=== PATIENT | male | born 1985 | race Caucasian/White ===

== ENCOUNTER 2019-05-02 18:32 | Emergency (ER) | payer OTHER, SELFPAY ==
[2019-05-02 18:42] VITALS: BP 160/83; PULSE 88; RESP 16; TEMP 37.4; O2SAT 100
--- NOTE | 2019-05-02 18:53 | ED.GENADULT ---
HPI - General Adult General Chief complaint: Upper Respiratory Infection Stated complaint: Congestion Time Seen by Provider: 05/02/19 18:53 Source: patient and RN notes reviewed Mode of arrival: ambulatory Limitations: no limitations History of Present Illness HPI narrative: 34-year-old male presents with complains of upper respiratory infection, sinus pressure and pain, dry cough intermittently for the past 1.5-2 months. Dayquil, Nyquil, Mucinex, Flonase, and Lashonda with some relief. Juaquin says when he is exposed to mold his sinus start acting up. He had to crawl under a home today with mold and sinus started acting up. Dry cough, intermittent productive cough (dark brown phlegm). Hoarseness. Rhinorrhea and nasal congestion. Denies sore throat. No high fevers, drooling, neck or throat swelling. No chest pain, wheezing, or shortness of breath. No exacerbation factors. Denies nausea, vomiting, and abdominal pain. Tolerating liquids well. Remains active. Some parts of this dictation were generated by voice recognition software and may contain typographical and/or grammatical inaccuracies. Related Data Allergies Allergy/AdvReac Type Severity Reaction Status Date / Time No Known Allergies Allergy Verified 05/02/19 18:35 Review of Systems Review of Systems: Narrative: CONSTITUTIONAL: Denies fever, chills, sweats. EYES: Denies visual changes, redness, discharge. ENT: Complains of rhinorrhea, congestion. Denies sore throat, otalgia. CARDIOVASCULAR: Denies chest pain, palpitations, edema. RESPIRATORY: Denies dyspnea, wheezing. Complains of dry cough, intermittent productive cough. GASTROINTESTINAL: Denies abdominal pain, nausea, vomiting, diarrhea. GENITOURINARY: Denies dysuria, hematuria, abnormal discharge. SKIN: Denies rash or itching. MUSCULOSKELETAL: Denies acute back pain, joint pain, or myalgia. NEUROLOGIC: Denies numbness or focal weakness. PSYCHIATRIC: Denies anxiety or depression. All systems reviewed & are unremarkable except as noted in HPI and below PMFSH Past Medical History Medical History (Updated 05/03/19 @ 00:00 by Emil Forman) Seasonal allergies Surgical History Surgical History (Updated 05/02/19 @ 19:08 by CHERYLE Leong) History of adenoidectomy History of ear surgery Sewing of earlobes History of tonsillectomy Family History Family History (Updated 05/02/19 @ 19:09 by CHERYLE Leong) Other Asthma Social History Social History (Updated 05/02/19 @ 19:09 by CHERYLE Leong) Smoking status: Former smoker Tobacco type: cigarettes Alcohol intake: former Substance use: current Substance use type: marijuana Living arrangements: with family Occupation/Education: occupation Gender identity (if verbalized by the patient): Male Comments At time of signature, agree with nurse past medical, surgical, social, and family history. There is no relevant family history pertinent to the presenting complaint. Exam Narrative: Exam Narrative: GENERAL: This is a well-nourished, well-developed patient, in no apparent distress. Talks in full sentences and ambulates with steady gait without dyspnea. HEAD: normocephalic, atraumatic. EYES: PERRL. Sclera clear/white. Vision is grossly intact. EARS: External ears normal, auditory canals clear and without drainage, TMs normal without perforation. Hearing grossly intact. NOSE: External nose normal with no obvious nasal discharge, nares with moderate redness and enlarged turbinates, clear rhinorrhea. THROAT: Mucous membranes moist, posterior pharynx clear. PND, mild erythema, no exudate or tonsils. No drooling, trismus, or neck swelling. NECK: Neck supple, non-tender without lymphadenopathy, masses or thyromegaly. CARDIOVASCULAR: Regular rate and rhythm without murmurs, gallops, or rubs. RESPIRATORY: Clear to auscultation. Breath sounds equal bilaterally. No wheezes, rales, or rhonchi. Dry cough. GASTROIN
== END 2019-05-02 19:18 | disposition home or self-care (01) ==
PROVIDERS: Emergency Provider Nurse Practitioner Family
DX: J01.90 Acute sinusitis, unspecified (principal); J00 Acute nasopharyngitis [common cold]; F17.210 Nicotine dependence, cigarettes, uncomplicated
CPT/HCPCS: 99203; G0463